=== PATIENT | female | born 1975 | race Two or more races ===

== ENCOUNTER 2019-07-05 09:55 | Inpatient (IN) | payer MEDICAID ==
[~2019-07-05] VITALS: Ht 157.5 cm; Wt 65.9 kg
[2019-07-05 12:27] VITALS: BP 95/70
[2019-07-05] MEDS ORDERED: LITH300CRT PO ×2 (12:31)
[2019-07-05 13:52] VITALS: BP 102/65
[2019-07-05] MEDS ORDERED: INFLUENZA VIRUS VACCINE QVS 2019-20 (3YR+)/PF 60 MCG/0.5 ML SYRINGE IM ONE (14:30)
[2019-07-05 16:00] VITALS: BP 105/58
[2019-07-05] MEDS ORDERED: PETROLATUM,WHITE 28 GM JELLY TP PRN (17:00)
[2019-07-05] MEDS ORDERED: CloNIDine HCL 0.1 MG TABLET PO PRN (17:00)
[2019-07-05] MEDS ORDERED: MAGNESIUM HYDROXIDE SUSPENSION 30 ML UDCUP PO PRN (17:00)
[2019-07-05] MEDS ORDERED: ALBUTEROL SULFATE HFA 90 MCG/PUFF 8 GM INHALER IH PRN (17:00)
[2019-07-05] MEDS ORDERED: MAG HYDROX/AL HYDROX/SIMETH ES 30 ML SUSPENSION UDCUP PO PRN (17:00)
[2019-07-05] MEDS ORDERED: GuaiFENesin/D-METHORPHAN [SUGAR-FREE] 200-20MG/10 ML SYRUP UDCUP PO PRN (17:00)
[2019-07-05] MEDS ORDERED: LOPERAMIDE HCL 2 MG CAPSULE PO PRN (17:00)
[2019-07-05] MEDS ORDERED: DOCUSATE SODIUM 100 MG CAPSULE PO PRN (17:00)
[2019-07-05] MEDS ORDERED: NICOTINE 14 MG/24 HOUR PATCH TD PRN (17:00)
[2019-07-05] MEDS: LORazepam 2 MG TABLET PO PRN (22:52)
[2019-07-06 00:09] VITALS: BP 106/68
[2019-07-06] MEDS: LORazepam 2 MG TABLET PO PRN ×2 (04:04→09:12)
[2019-07-06] MEDS: ZIPRASIDONE HCL 40 MG CAPSULE PO SCH ×2 (07:20→16:19)
[2019-07-06 07:47] LABS: HEMATOCRIT 32.7 % (36-46); HEMOGLOBIN 10.5 g/dL (12.0-16.0); LYMPHOCYTES # (AUTO) 1.5 K/uL (1.0-4.8); LYMPHOCYTES % (AUTO) 43.2 % (22.0-44.0); MEAN CORPUSCULAR HEMOGLOBIN 27.6 pg (26.0-34.0); MEAN CORPUSCULAR HGB CONC 32.3 G/dL (31.0-37.0); MEAN CORPUSCULAR VOLUME 85 fL (80-100); MONOCYTES # (AUTO) 0.3 K/uL (0.1-1.0); MONOCYTES % (AUTO) 9.4 % (2.0-9.0); NEUTROPHILS # (AUTO) 1.5 K/uL (1.8-7.7); NEUTROPHILS % (AUTO) 41.4 % (40.0-70.0); PLATELET COUNT (AUTO) 387 K/uL (150-450); RED BLOOD CELL COUNT(AUTO) 3.83 MIL/uL (4.00-5.20); RED CELL DISTRIBUTION WIDTH 17.7 % (11.5-14.5)
[2019-07-06 08:13] LABS: HEMOGLOBIN A1C 5.3 % (4.5-6.2)
[2019-07-06 08:26] LABS: ALANINE AMINOTRANSFERASE 20 U/L (12-78); ALKALINE PHOSPHATASE 64 U/L (46-116); ANION GAP 7 mmol/L (8-16); ASPARTATE AMINOTRANSFERASE 14 U/L (15-37); BILIRUBIN,TOTAL 0.3 mg/dL (0.1-1.0); CALCIUM, TOTAL 8.1 mg/dL (8.8-10.5); CARBON DIOXIDE 28 mmol/L (22-29); CHLORIDE 106 mmol/L (98-107); CHOLESTEROL 202 mg/dL (131-200); CREATININE 0.72 mg/dL (0.60-1.30); FREE T4 (FREE THYROXINE) 0.77 ng/dL (0.76-1.46); GLOMERULAR FILTR. RATE CALC > 60 mL/min (>60); GLUCOSE,RANDOM 89 mg/dL (70-110); HCG,QUANTITATIVE < 1 mIU/mL (0-6); HDL CHOLESTEROL 68 mg/dL (40-60); LDL CHOL (CALC.) 107 mg/dL (0-130); SODIUM SERUM 141 mmol/L (136-145); THYROID STIMULATING HORMONE 2.24 uIU/mL (0.36-3.74); TOTAL PROTEIN, SERUM 6.1 g/dL (6.4-8.2); TRIGLYCERIDES 135 mg/dL (15-150); UREA NITROGEN, BLOOD 12 mg/dL (7-18)
[2019-07-06 08:51] VITALS: BP 103/67
[2019-07-06] MEDS: LITHIUM CARBONATE 300 MG CAPSULE PO SCH (09:13)
[2019-07-06] MEDS ORDERED: DiphenhydrAMINE HCL 50 MG/ML VIAL IM ONE (10:15)
[2019-07-06] MEDS ORDERED: LORazepam 2 MG/ML VIAL IM ONE (10:15)
[2019-07-06] MEDS ORDERED: HALOPERIDOL LACTATE 5 MG/ML VIAL IM ONE (10:15)
[2019-07-06 15:55] VITALS: BP 106/65
[2019-07-06 19:31] VITALS: BP 106/65
[2019-07-06] MEDS: LITHIUM CARBONATE 600 MG CAPSULE PO SCH (20:37)
[2019-07-06] MEDS: ACETAMINOPHEN 325 MG TABLET PO PRN (23:07)
[2019-07-07 04:46] VITALS: BP 114/77
[2019-07-07] MEDS: LORazepam 2 MG TABLET PO PRN ×2 (04:50→16:35)
[2019-07-07] MEDS: ZIPRASIDONE HCL 40 MG CAPSULE PO SCH ×2 (06:50→16:35)
[2019-07-07 08:23] VITALS: BP 99/60
[2019-07-07] MEDS: LITHIUM CARBONATE 300 MG CAPSULE PO SCH (09:00)
[2019-07-07] MEDS: ACETAMINOPHEN 325 MG TABLET PO PRN (11:07)
[2019-07-07 16:10] VITALS: BP 104/62
[2019-07-07] MEDS: HALOPERIDOL 5 MG TABLET PO PRN (17:02)
[2019-07-07] MEDS: IBUPROFEN 400 MG TABLET PO PRN (17:35)
[2019-07-07] MEDS: LITHIUM CARBONATE 600 MG CAPSULE PO SCH (20:10)
[2019-07-08] MEDS: IBUPROFEN 400 MG TABLET PO PRN ×2 (02:34→22:40)
[2019-07-08] MEDS: ZOLPIDEM TARTRATE 10 MG TABLET PO PRN ×2 (02:37→21:27)
[2019-07-08 02:38] VITALS: BP 106/61
[2019-07-08] MEDS: ZIPRASIDONE HCL 40 MG CAPSULE PO SCH (06:27)
[2019-07-08] MEDS: LITHIUM CARBONATE 300 MG CAPSULE PO SCH (08:35)
[2019-07-08 12:21] VITALS: BP 124/64
[2019-07-08] MEDS: LORazepam 2 MG TABLET PO PRN ×2 (12:29→16:52)
[2019-07-08 16:05] VITALS: BP 139/67
[2019-07-08] MEDS: ZIPRASIDONE HCL 60 MG CAPSULE PO SCH (16:10)
[2019-07-08] MEDS: HALOPERIDOL 5 MG TABLET PO PRN (16:51)
[2019-07-08] MEDS: ROPINIRole HCL 1 MG TABLET PO SCH (21:13)
[2019-07-08] MEDS: LITHIUM CARBONATE 600 MG CAPSULE PO SCH (21:13)
[2019-07-08 23:30] VITALS: BP 113/61
[2019-07-08] MEDS: ONDANSETRON HCL 4 MG TABLET PO PRN (23:33)
[2019-07-09 04:26] VITALS: BP 120/65
[2019-07-09] MEDS: ZIPRASIDONE HCL 60 MG CAPSULE PO SCH ×2 (06:32→17:00)
[2019-07-09] MEDS: LITHIUM CARBONATE 300 MG CAPSULE PO SCH (08:42)
[2019-07-09] MEDS: LORazepam 2 MG TABLET PO PRN (10:23)
[2019-07-09] MEDS: ONDANSETRON HCL 4 MG TABLET PO PRN (10:23)
[2019-07-09 14:16] VITALS: BP 97/60
[2019-07-09 15:20] VITALS: BP 95/69
[2019-07-09 16:05] VITALS: BP 109/67
[2019-07-09] MEDS ORDERED: ZIPRASIDONE HCL 80 MG CAPSULE PO SCH (17:00)
[2019-07-09] MEDS: ZOLPIDEM TARTRATE 10 MG TABLET PO PRN (20:48)
[2019-07-09] MEDS: LITHIUM CARBONATE 600 MG CAPSULE PO SCH (20:49)
[2019-07-09] MEDS: ROPINIRole HCL 1 MG TABLET PO SCH (20:49)
[2019-07-10] MEDS: ONDANSETRON HCL 4 MG TABLET PO PRN (00:10)
[2019-07-10 01:00] VITALS: BP 97/69
[2019-07-10] MEDS: IBUPROFEN 400 MG TABLET PO PRN ×2 (01:09→13:00)
[2019-07-10] MEDS: LORazepam 2 MG TABLET PO PRN (04:22)
[2019-07-10] MEDS: ZIPRASIDONE HCL 60 MG CAPSULE PO SCH (06:44)
[2019-07-10 08:20] VITALS: BP 126/51
[2019-07-10] MEDS: LITHIUM CARBONATE 300 MG CAPSULE PO SCH (09:00)
[2019-07-10] MEDS ORDERED: ZIPR60CA2 PO (12:07)
[2019-07-10] MEDS ORDERED: ROPI1TAB11 PO (12:07)
== END 2019-07-10 15:20 | disposition home or self-care (01) | DRG 753 ==
LOC: B2S 13:42
PROVIDERS: ADMIT Psychiatry & Neurology Psychiatry; ATTEND Psychiatry & Neurology Psychiatry
DX: F31.9 Bipolar disorder, unspecified (principal); M35.00 Sjogren syndrome, unspecified; R45.851 Suicidal ideations; D64.9 Anemia, unspecified; D72.819 Decreased white blood cell count, unspecified; F41.9 Anxiety disorder, unspecified; R45.87 Impulsiveness; E78.5 Hyperlipidemia, unspecified; F12.90 Cannabis use, unspecified, uncomplicated; Z91.5 Personal history of self-harm
CPT/HCPCS: 83036; 84439; 84443; J1200; J1630; J2060; Q0162

== ENCOUNTER 2019-07-09 16:16 | Emergency (ER) | payer MEDICAID, OTHER ==
[~2019-07-09] VITALS: Ht 157.5 cm; Wt 68.2 kg
[~2019-07-09 16:16] MED LIST: LITH300CRT PO
[2019-07-09 16:57] LABS: BASOPHILS % (AUTO) 0.5 % (0.0-2.0); EOSINOPHILS % (AUTO) 2.3 % (1.0-6.0); HEMATOCRIT 35.6 % (36-46); HEMOGLOBIN 11.2 g/dL (12.0-16.0); LYMPHOCYTES # (AUTO) 1.2 K/uL (1.0-4.8); LYMPHOCYTES % (AUTO) 26.8 % (22.0-44.0); MEAN CORPUSCULAR HGB CONC 31.6 G/dL (31.0-37.0); MEAN CORPUSCULAR VOLUME 85 fL (80-100); MONOCYTES # (AUTO) 0.3 K/uL (0.1-1.0); NEUTROPHILS # (AUTO) 2.8 K/uL (1.8-7.7); NEUTROPHILS % (AUTO) 63.4 % (40.0-70.0); PLATELET COUNT (AUTO) 407 K/uL (150-450); RED BLOOD CELL COUNT(AUTO) 4.17 MIL/uL (4.00-5.20); RED CELL DISTRIBUTION WIDTH 16.8 % (11.5-14.5)
[2019-07-09 17:04] LABS: ANION GAP 5 mmol/L (8-16); CALCIUM, TOTAL 9.1 mg/dL (8.8-10.5); CARBON DIOXIDE 29 mmol/L (22-29); CHLORIDE 103 mmol/L (98-107); GLOMERULAR FILTR. RATE CALC > 60 mL/min (>60); GLUCOSE,RANDOM 87 mg/dL (70-110); POTASSIUM 4.5 mmol/L (3.5-5.1); SODIUM SERUM 137 mmol/L (136-145); UREA NITROGEN, BLOOD 12 mg/dL (7-18)
[2019-07-09 17:18] LABS: ALANINE AMINOTRANSFERASE 16 U/L (12-78); ALBUMIN 3.8 g/dL (3.4-5.0); ALKALINE PHOSPHATASE 70 U/L (46-116); ASPARTATE AMINOTRANSFERASE 12 U/L (15-37); BILIRUBIN,TOTAL 0.4 mg/dL (0.1-1.0); LIPASE 88 U/L (73-393); THYROID STIMULATING HORMONE 2.08 uIU/mL (0.36-3.74); TOTAL PROTEIN, SERUM 7.3 g/dL (6.4-8.2)
[2019-07-09 17:29] LABS: LITHIUM 0.75 mmol/L (0.60-1.20)
[2019-07-09 17:47] LABS: APPEARANCE,URINE CLOUDY (CLEAR); BILIRUBIN,URINE NEGATIVE (NEGATIVE); GLUCOSE, URINE (UA) NEGATIVE (NEGATIVE); KETONES,URINE NEGATIVE (NEGATIVE); LEUKOCYTE ESTERASE ,URINE NEGATIVE (NEGATIVE); NITRATE,URINE NEGATIVE (NEGATIVE); OCCULT BLOOD,URINE NEGATIVE (NEGATIVE); PH,URINE 7.5 (5.0-8.0); PROTEIN,URINE NEGATIVE (NEGATIVE)
[2019-07-09 18:18] LABS: HCG,QUANTITATIVE < 1 mIU/mL (0-6)
[2019-07-09] MEDS ORDERED: OxyCODONE HCL/ACETAMINOPHEN 5-325 MG TABLET PO ONE (18:45)
[2019-07-09] MEDS ORDERED: GABAPENTIN 300 MG CAPSULE PO ONE (18:45)
[2019-07-09 19:15] VITALS: BP 123/68
[2019-07-09] MEDS ORDERED: ONDANSETRON HCL 4 MG TABLET PO ONE (19:15)
[2019-07-10] MEDS ORDERED: ROPI1TAB11 PO (12:07)
[2019-07-10] MEDS ORDERED: ZIPR60CA2 PO (12:07)
== END 2019-07-09 19:21 | disposition home or self-care (01) ==
LOC: EMS 16:17
DX: R11.2 Nausea with vomiting, unspecified (principal); M79.604 Pain in right leg; M79.605 Pain in left leg; G89.29 Other chronic pain; F31.9 Bipolar disorder, unspecified; F17.210 Nicotine dependence, cigarettes, uncomplicated; Z88.8 Allergy status to other drugs, medicaments and biological substances
CPT/HCPCS: 36415; 80053; 80178; 81003; 81025; 83690; 84443; 84702; 85025; 93005; 99285; Q0162